=== PATIENT | female | born 1940 | race Asian ===

== ENCOUNTER 2019-01-25 14:23 | Emergency (ER) | payer MEDICARE ==
[~2019-01-25] VITALS: Ht 157.5 cm; Wt 57.7 kg
[2019-01-25] MEDS ORDERED: LISI-662 PO (14:45)
[2019-01-25] MEDS ORDERED: AMLO-511 PO (14:45)
[2019-01-25] MEDS ORDERED: DiphenhydrAMINE HCL 50 MG/ML VIAL IVP ONE (16:30)
[2019-01-25] MEDS ORDERED: FAMOTIDINE 10 MG/ML 2 ML VIAL IVP ONE (16:30)
[2019-01-25] MEDS ORDERED: MethylPREDNISolone SOD SUCC 125 MG/2 ML VIAL IVP ONE (16:30)
[2019-01-25 16:51] LABS: EOSINOPHILS % (AUTO) 2.5 % (1.0-6.0); HEMATOCRIT 39.2 % (36-46); LYMPHOCYTES % (AUTO) 21.6 % (22.0-44.0); MEAN CORPUSCULAR HEMOGLOBIN 27.8 pg (26.0-34.0); MEAN CORPUSCULAR HGB CONC 33.1 G/dL (31.0-37.0); MEAN CORPUSCULAR VOLUME 84 fL (80-100); MONOCYTES # (AUTO) 0.6 K/uL (0.1-1.0); MONOCYTES % (AUTO) 6.9 % (2.0-9.0); NEUTROPHILS # (AUTO) 6.2 K/uL (1.8-7.7); PLATELET COUNT (AUTO) 270 K/uL (150-450); RED BLOOD CELL COUNT(AUTO) 4.66 MIL/uL (4.00-5.20)
[2019-01-25 17:07] LABS: CREATININE 1.32 mg/dL (0.60-1.30); POTASSIUM 4.6 mmol/L (3.5-5.1)
[2019-01-25 17:17] LABS: ALBUMIN 4.4 g/dL (3.4-5.0); BILIRUBIN,TOTAL 0.4 mg/dL (0.1-1.0); C-REACTIVE PROTEIN QUANT 0.7 mg/dL (0.00-0.30)
[2019-01-25 18:01] LABS: ERYTHROCYTE SEDIMENTATION RATE 34 MM/HR (0-20)
[2019-01-25 19:44] VITALS: BP 139/71
== END 2019-01-25 19:59 | disposition home or self-care (01) ==
LOC: EMS 14:25
DX: T78.3XXA Angioneurotic edema, initial encounter (principal); I10 Essential (primary) hypertension; Z90.710 Acquired absence of both cervix and uterus; Z98.51 Tubal ligation status; Z79.899 Other long term (current) drug therapy; X58.XXXA Exposure to other specified factors, initial encounter
CPT/HCPCS: 36415; 80053; 85025; 85651; 86140; 96374; 96375; 99283; J1200; J2930; J3490

== ENCOUNTER 2019-02-18 17:03 | Emergency (ER) | payer MEDICARE ==
[~2019-02-18] VITALS: Ht 160 cm; Wt 57.7 kg
[~2019-02-18 17:03] MED LIST: AMLO-511 PO; LISI-662 PO
[2019-02-18 17:17] VITALS: BP 118/54
== END 2019-02-18 18:55 | disposition home or self-care (01) ==
LOC: EMS 17:04
DX: M10.9 Gout, unspecified (principal); M79.89 Other specified soft tissue disorders; I10 Essential (primary) hypertension; Z90.710 Acquired absence of both cervix and uterus; Z98.51 Tubal ligation status; Z79.899 Other long term (current) drug therapy